=== PATIENT | female | born 1990 | race Caucasian/White ===

== ENCOUNTER 2020-06-17 10:11 | Inpatient (IN) | payer BC, SELFPAY ==
[~2020-06-17] VITALS: Ht 167.6 cm; Wt 72.1 kg
[2020-06-17] MEDS ORDERED: LR 1,000 ML IV ONE (10:35)
[2020-06-17] MEDS ORDERED: TERBUTALINE SULFATE 1 MG/ML VIAL SUBCUT ONE (10:45)
[2020-06-17 11:00] LABS: BASOPHILS # (AUTO) 0.1 K/uL (0.0-0.2); BASOPHILS % (AUTO) 0.7 % (0.0-2.0); EOSINOPHILS % (AUTO) 0.4 % (0.0-4.0); HEMATOCRIT 36.1 % (36-48); HEMOGLOBIN 12.4 g/dL (12.0-16.0); LYMPHOCYTES # (AUTO) 1.1 K/uL (1.0-5.5); LYMPHOCYTES % (AUTO) 13.6 % (20.5-51.5); MEAN CORPUSCULAR HEMOGLOBIN 31 pg (27-31); MEAN CORPUSCULAR HGB CONC 34 % (32-36); MEAN CORPUSCULAR VOLUME 90 fL (79.0-98.0); MONOCYTES # (AUTO) 0.5 K/uL (0.0-1.0); MONOCYTES % (AUTO) 5.8 % (1.7-9.3); NEUTROPHILS # (AUTO) 6.6 K/uL (1.8-7.7); NEUTROPHILS % (AUTO) 79.5 % (40.0-70.0); PLATELET COUNT (AUTO) 143 K/uL (130-430); RED BLOOD CELL COUNT(AUTO) 4.01 MIL/uL (4.2-6.2); RED CELL DISTRIBUTION WIDTH 13.1 % (9.0-15.0); WHITE BLOOD COUNT (AUTO) 8.3 K/uL (4.8-10.8)
[2020-06-17 11:20] LABS: ALBUMIN 2.9 g/dL (3.4-4.8); CALCIUM 8.4 mg/dL (8.4-11.0); CREATININE 0.61 mg/dL (0.55-1.30); POTASSIUM 3.7 mmol/L (3.5-5.1); TOTAL BILIRUBIN 0.2 mg/dL (0.0-1.0)
[2020-06-17] MEDS: BETAMET ACET/BETAMET NA PH 30 MG/5 ML VIAL IM SCH (11:59)
[2020-06-17 21:41] LABS: BILIRUBIN,URINE NEGATIVE (NEGATIVE); BLOOD, URINE NEGATIVE (NEGATIVE); CLARITY/URINE CLEAR (CLEAR); COLOR,URINE YELLOW (YELLOW); GLUCOSE,URINE NEGATIVE (NEGATIVE); KETONES,URINE NEGATIVE (NEGATIVE); LEUKOCYTE ESTERASE ,URINE NEGATIVE (NEGATIVE); NITRITE, URINE NEGATIVE (NEGATIVE); PH,URINE 7.5 (5.0-8.0); PROTEIN URINE NEGATIVE (NEGATIVE); UROBILINOGEN,URINE 0.2 (0.2-1.0)
[2020-06-17] MEDS ORDERED: TEMAZEPAM 7.5 MG CAPSULE PO PRN (22:30)
[2020-06-17] MEDS ORDERED: TEMAZEPAM 15 MG CAPSULE ONE (23:08)
[2020-06-18] MEDS ORDERED: TEMAZEPAM 15 MG CAPSULE ONE ×2 (00:45→21:22)
[2020-06-18] MEDS: LR 1,000 ML IV SCH (03:22)
[2020-06-18 05:44] VITALS: BP_SYST 131
[2020-06-18] MEDS: BETAMET ACET/BETAMET NA PH 30 MG/5 ML VIAL IM SCH (11:59)
[2020-06-18] MEDS ORDERED: BETAMET ACET/BETAMET NA PH 30 MG/5 ML VIAL IM ONE (12:00)
[2020-06-19] MEDS ORDERED: TEMAZEPAM 15 MG CAPSULE PO PRN (01:00)
[2020-06-19] MEDS ORDERED: TEMAZEPAM 15 MG CAPSULE ONE (01:06)
[2020-06-19] MEDS: LR 1,000 ML IV SCH ×3 (05:00→21:45)
[2020-06-19] MEDS ORDERED: DINOPROSTONE 10 MG SUPP VG ONE (12:00)
[2020-06-19] MEDS ORDERED: LIDOCAINE JELLY 5 ML TUBE MM ONE (14:15)
[2020-06-19] MEDS ORDERED: LIDOCAINE 2% JELLY UROJECT 10 ML MM ONE (14:45)
[2020-06-20] MEDS: LR 1,000 ML IV SCH ×3 (05:50→21:00)
[2020-06-20] MEDS ORDERED: DINOPROSTONE 10 MG SUPP VG ONE (10:00)
[2020-06-20] MEDS ORDERED: fentaNYL CITRATE/PF 100 MCG/2 ML AMP ONE (19:46)
[2020-06-20] MEDS ORDERED: ROPIVACAINE HCL/PF 0.2% 200 ML ONE (19:46)
[2020-06-20] MEDS ORDERED: OXYTOCIN/0.9 % SODIUM CHLORIDE 1,000 ML IV SCH (20:11)
[2020-06-21] MEDS ORDERED: LR 500 ML IV ONE (00:56)
[2020-06-21] MEDS ORDERED: FENT2mCg/mL-ROPIVA0.2%/NS EPID 200 ML EP SCH (01:00)
[2020-06-21] MEDS ORDERED: OXYTOCIN/0.9 % SODIUM CHLORIDE 1,000 ML IV ONE (01:50)
[2020-06-21] MEDS ORDERED: OXYTOCIN/0.9 % SODIUM CHLORIDE 1,000 ML IV SCH (01:50)
[2020-06-21] MEDS ORDERED: LANOLIN 7 GM OINT. TP PRN (02:00)
[2020-06-21] MEDS ORDERED: HYDROcodone/ACETAMIN 5-325 MG TAB (NORCO/ VICODIN) PO PRN (02:00)
[2020-06-21] MEDS ORDERED: DOCUSATE SODIUM 100 MG CAPSULE PO PRN (02:00)
[2020-06-21] MEDS ORDERED: NALOXONE HCL 0.4 MG/ML AMP (NARCAN) IVP PRN (02:00)
[2020-06-21] MEDS ORDERED: METHYLERGONOVINE MALEATE 0.2 MG TABLET PO PRN (02:00)
[2020-06-21] MEDS ORDERED: HYDROCORTISONE 0.5%, 28.35 GM TOPICAL CREAM TP PRN (02:00)
[2020-06-21] MEDS ORDERED: WITCH HAZEL LEAF 1 MED.PAD MED.PAD TP PRN (02:00)
[2020-06-21] MEDS ORDERED: MEASLES,MUMPS&RUBELLA VACC/PF 12500 UNIT/0.5 ML VIAL SUBQ PRN (02:00)
[2020-06-21] MEDS ORDERED: OXYCODONE/ACETAMINOPHEN 5-325 TABLET PO PRN ×2 (02:00)
[2020-06-21] MEDS ORDERED: SENNOSIDES/DOCUSATE SODIUM 1 TAB TABLET(SENOKOT-S) PO PRN (02:00)
[2020-06-21] MEDS ORDERED: RHO(D) IMMUNE GLOBULIN/MALTOSE 1500 UNITS/1.3 ML (WINHRO) IM PRN (02:00)
[2020-06-21] MEDS ORDERED: DERMOPLAST SPRAY TP PRN (02:00)
[2020-06-21] MEDS ORDERED: ANUSOL 1 EA SUPP.RECT (PREPARATION H) RC PRN (02:00)
[2020-06-21] MEDS ORDERED: DIPH-TET-PERTUS Vaccine 0.5 ML VIAL (ADACEL) I.M. PRN (02:00)
[2020-06-21] MEDS: IBUPROFEN 600 MG TABLET PO SCH ×3 (05:13→18:07)
[2020-06-21] MEDS ORDERED: TEMAZEPAM 15 MG CAPSULE PO PRN (21:00)
[2020-06-22] MEDS: IBUPROFEN 600 MG TABLET PO SCH ×3 (06:01→12:28)
[2020-06-22 07:49] LABS: BASOPHILS % (AUTO) 0.2 % (0.0-2.0); EOSINOPHILS # (AUTO) 0.1 K/uL (0.0-0.4); EOSINOPHILS % (AUTO) 0.8 % (0.0-4.0); HEMATOCRIT 31.3 % (36-48); HEMOGLOBIN 10.6 g/dL (12.0-16.0); LYMPHOCYTES # (AUTO) 1.7 K/uL (1.0-5.5); LYMPHOCYTES % (AUTO) 16.4 % (20.5-51.5); MEAN CORPUSCULAR HEMOGLOBIN 31 pg (27-31); MEAN CORPUSCULAR HGB CONC 34 % (32-36); MEAN CORPUSCULAR VOLUME 91 fL (79.0-98.0); MONOCYTES # (AUTO) 0.7 K/uL (0.0-1.0); MONOCYTES % (AUTO) 7.1 % (1.7-9.3); NEUTROPHILS # (AUTO) 7.6 K/uL (1.8-7.7); NEUTROPHILS % (AUTO) 75.5 % (40.0-70.0); PLATELET COUNT (AUTO) 131 K/uL (130-430); RED BLOOD CELL COUNT(AUTO) 3.43 MIL/uL (4.2-6.2); RED CELL DISTRIBUTION WIDTH 13.3 % (9.0-15.0); WHITE BLOOD COUNT (AUTO) 10.1 K/uL (4.8-10.8)
== END 2020-06-22 14:25 | disposition home or self-care (01) | DRG 806 ==
LOC: OBSVTOIN 10:11 → SPU 10:11
PROVIDERS: ADMIT Specialist; ATTEND Specialist
PROC: 10E0XZZ Delivery of Products of Conception, External Approach (ICD-10-PCS; principal; 2020-06-21)
PROC: 3E0R3BZ Introduction of Anesthetic Agent into Spinal Canal, Percutaneous Approach (ICD-10-PCS; 2020-06-21)
PROC: 00HU33Z Insertion of Infusion Device into Spinal Canal, Percutaneous Approach (ICD-10-PCS; 2020-06-21)
PROC: 0KQM0ZZ Repair Perineum Muscle, Open Approach (ICD-10-PCS; 2020-06-21)
PROC: 3E0P7VZ Introduction of Hormone into Female Reproductive, Via Natural or Artificial Opening (ICD-10-PCS; 2020-06-21)
DX: O69.81X0 Labor and delivery complicated by cord around neck, without compression, not applicable or unspecified (principal); O41.03X0 Oligohydramnios, third trimester, not applicable or unspecified; Z37.0 Single live birth; O36.5930 Maternal care for other known or suspected poor fetal growth, third trimester, not applicable or unspecified; Z3A.37 37 weeks gestation of pregnancy; O70.1 Second degree perineal laceration during delivery
CPT/HCPCS: 36415; 80053; 81003; 85025; 86592; 86886; 86900; 86901; 90715; J0702; J2590; J3010; J7120